=== PATIENT | female | born 1990 | race Caucasian/White ===

== ENCOUNTER 2020-03-22 16:58 | Emergency (ER) | payer MEDICAID, OTHER ==
[~2020-03-22] VITALS: Ht 165.1 cm; Wt 78.6 kg
[~2020-03-22 16:58] MED LIST: ROBCFL PO
[2020-03-22 17:05] VITALS: BP 121/88
[2020-03-22] MEDS ORDERED: ondansetron 4mg rapidly disintigrating tab PO ONE (17:55)
[2020-03-22] MEDS ORDERED: ketorolac trometh. 30mg/ml inj. IM ONE (17:55)
[2020-03-22] MEDS ORDERED: HYDROcodone/acetaminophen 5mg/325mg tablet PO ONE (17:55)
== END 2020-03-22 18:16 | disposition home or self-care (01) ==
LOC: ER 17:00
DX: S20.212A Contusion of left front wall of thorax, initial encounter (principal); Z79.899 Other long term (current) drug therapy; V87.7XXA Person injured in collision between other specified motor vehicles (traffic), initial encounter; Y93.89 Activity, other specified; Y92.89 Other specified places as the place of occurrence of the external cause; Y99.8 Other external cause status
CPT/HCPCS: 96372; 99283; J1885

== ENCOUNTER 2021-07-27 08:15 | Emergency (ER) | payer MEDICAID ==
[~2021-07-27] VITALS: Ht 165.1 cm; Wt 81.8 kg
[2021-07-27 09:42] LABS: BASOPHILS % (AUTO) 0.6 % (0-1); EOSINOPHILS # (AUTO) 0.1 X10'3 (0-0.9); EOSINOPHILS % (AUTO) 1.5 % (0-6); HEMOGLOBIN 13.3 g/dl (12.0-16.0); LYMPHOCYTES # (AUTO) 2.1 X10'3 (1.1-4.8); LYMPHOCYTES % (AUTO) 24.7 % (21-51); MEAN CORPUSCULAR HEMOGLOBIN 31.3 PG (27.0-31.0); MEAN CORPUSCULAR HGB CONC 34.1 g/dL (33.0-36.5); MEAN CORPUSCULAR VOLUME 91.8 FL (78-98); MEAN PLATELET VOLUME 8.7 FL (7.4-10.4); MONOCYTES # (AUTO) 0.4 X10'3 (0-0.9); MONOCYTES % (AUTO) 4.7 % (2-12); NEUTROPHILS # (AUTO) 5.7 X10'3 (1.8-7.7); NEUTROPHILS % (AUTO) 68.5 % (42-75); PLATELET COUNT 257 X10'3 (140-440); RED BLOOD COUNT 4.25 X10'6 (4.20-5.60); RED CELL DISTRIBUTION WIDTH 12.9 % (11.5-14.5); WHITE BLOOD COUNT 8.4 X10'3 (4.5-11.0)
[2021-07-27 10:13] LABS: ALANINE AMINOTRANSFERASE 16 U/L (12-78); ALBUMIN 3.7 G/DL (3.4-5.0); ALKALINE PHOSPHATASE 43 IU/L (46-116); ANION GAP 9 (8-16); ASPARTATE AMINO TRANSFERASE 10 U/L (10-37); BILIRUBIN,TOTAL 0.9 MG/DL (0.1-1.0); BLOOD UREA NITROGEN 8 MG/DL (7-18); BUN/CREATININE RATIO 12.9 (6.6-38.0); CALCIUM 9.1 MG/DL (8.5-10.1); CHLORIDE 104 MMOL/L (99-107); CREATININE 0.62 MG/DL (0.40-0.90); GLUCOSE 86 MG/DL (70-104); LIPASE 50 U/L (73-393); POTASSIUM 3.9 MMOL/L (3.5-5.1); SODIUM 138 MMOL/L (135-145); TOTAL CARBON DIOXIDE 25.2 MMOL/L (24-32); TOTAL PROTEIN 7.5 G/DL (6.4-8.2); eGFR > 90 ML/MIN
[2021-07-27 10:56] LABS: BETA HCG,QUANTITATIVE 146650 mIU/ml
[2021-07-27 12:03] LABS: CLARITY,URINE SLIGHTLY CLOUDY (Clear); COLOR,URINE YELLOW (Yellow); GLUCOSE, URINE NEGATIVE (Neg); KETONES,URINE TRACE mg/dl (Neg); LEUKOCYTE ESTERASE ,URINE NEGATIVE (Neg); NITRITES, URINE NEGATIVE (Neg); OCCULT BLOOD,URINE NEGATIVE (Neg); PH,URINE 6.5 (4.8-8.0); PROTEIN,URINE NEGATIVE (Neg); UROBILINOGEN,URINE 0.2 E.U/dL (0.2-1.0)
[2021-07-27 12:06] LABS: UA COLLECTION TYPE CLN CATCH MIDSTREAM
[2021-07-27 12:09] LABS: BACTERIA,URINE NONE SEEN /HPF (Neg); MUCUS STRANDS MANY /LPF (Neg); RBC,URINE NONE SEEN /HPF (0-2); SQUAMOUS EPITHELIAL CELL,UR FEW /LPF (FEW); WBC,URINE 0-4 /HPF (0-4)
[2021-07-27] MEDS ORDERED: normal saline 1000ml 1,000 ML IV ONE (13:00)
[2021-07-27] MEDS ORDERED: proCHLORperazine 10 MG/2 ml inj IV ONE (13:00)
[2021-07-27] MEDS ORDERED: diphenhydrAMINE 50 mg/ml inj IV ONE (14:00)
--- NOTE | 2021-07-27 14:40 | NUR ---
Pt tolerated PO challenge.
[2021-07-27 14:43] VITALS: BP 113/61
== END 2021-07-27 14:47 | disposition home or self-care (01) ==
LOC: ER 08:17
DX: O21.9 Vomiting of pregnancy, unspecified (principal); O26.891 Other specified pregnancy related conditions, first trimester; Z3A.01 Less than 8 weeks gestation of pregnancy; Z88.8 Allergy status to other drugs, medicaments and biological substances
CPT/HCPCS: 36415; 80053; 81001; 83690; 84702; 85025; 96361; 96374; 99283; J0780; J7030

== ENCOUNTER 2024-04-23 18:58 | Emergency (ER) | payer MEDICAID ==
[~2024-04-23] VITALS: Ht 165.1 cm; Wt 104.5 kg
[2024-04-23] MEDS: TETanus/Pertussis (Acell)/Diphther VAC/PF (Tdap-Adult) 0.5ml syringe IMVAC ONE (20:28)
[2024-04-23] MEDS: LIDOcaine 1% 30ml preserv. free vial SQ STA (21:44)
[2024-04-23] MEDS: ibuprofen tablet 400 MG TABLET PO ONE (21:45)
[2024-04-23] MEDS: acetaminophen 325mg tablet PO ONE (21:45)
[2024-04-23] MEDS: cephalexin 250mg capsule PO ONE (21:45)
[2024-04-23] MEDS ORDERED: CEPH-585 PO (22:04)
[2024-04-23] MEDS ORDERED: IBUP-1984 PO (22:05)
[2024-04-23 22:12] VITALS: BP 145/85; PULSE 90; RESP 18; TEMP 98.6; O2SAT 99
== END 2024-04-23 22:14 | disposition home or self-care (01) ==
LOC: ER 18:59
DX: S61.236A Puncture wound without foreign body of right little finger without damage to nail, initial encounter (principal); S61.234A Puncture wound without foreign body of right ring finger without damage to nail, initial encounter; X58.XXXA Exposure to other specified factors, initial encounter; Y93.89 Activity, other specified; Y92.89 Other specified places as the place of occurrence of the external cause; Y99.8 Other external cause status
CPT/HCPCS: 73130; 90471; 90715; 96372; 99284; J2003; A6449

== ENCOUNTER 2024-05-31 09:31 | Outpatient (CLI) | payer MEDICAID ==
[2024-05-31] VITALS (21 sets, daily range): BP systolic 124–153; BP diastolic 33–102; PULSE 67–100
[~2024-05-31 09:31] MED LIST changes: +CEPH-585 PO
== END 2024-05-31 23:59 | disposition home or self-care (01) ==
LOC: CARD DIAG 09:31
PROVIDERS: ATTEND Physician Assistant
DX: R55 Syncope and collapse (principal); R42 Dizziness and giddiness
CPT/HCPCS: 93660